=== PATIENT | female | born 1970 | race Two or more races ===

== ENCOUNTER 2017-11-23 11:10 | Day surgery (SDC) | payer OTHER | END 2017-11-23 15:40 | disposition home or self-care (01) | LOC: AMB-ENDOS 11:10 | DX: K91.850 Pouchitis (principal); K62.4 Stenosis of anus and rectum ==

== ENCOUNTER 2017-12-24 04:44 | Inpatient (IN) | payer OTHER ==
[~2017-12-24] VITALS: Ht 162.6 cm; Wt 45.4 kg
[2017-12-24] MEDS ORDERED: FLAGYL500MG (05:09)
[2017-12-26] MEDS ORDERED: CIPRO500 MG PO (09:30)
[2017-12-26] MEDS ORDERED: FLAGYL500MG PO (09:30)
[2017-12-26] MEDS ORDERED: INTESTINEX680 M1 PO (09:30)
== END 2017-12-26 12:24 | disposition home or self-care (01) | DRG 394 ==
LOC: ER 04:44 → SEC-K 16:42 → SURG 16:42 → ER 16:42 → SURG 12-25 01:06
PROVIDERS: Surgery
PROC: 3E0T3BZ Introduction of Anesthetic Agent into Peripheral Nerves and Plexi, Percutaneous Approach (ICD-10-PCS; 2017-12-25)
PROC: 0DJD7ZZ Inspection of Lower Intestinal Tract, Via Natural or Artificial Opening (ICD-10-PCS; 2017-12-25)
PROC: 0D9Q0ZX Drainage of Anus, Open Approach, Diagnostic (ICD-10-PCS; principal; 2017-12-25 09:00)
DX: K61.0 Anal abscess (principal); K91.850 Pouchitis; K51.818 Other ulcerative colitis with other complication; K62.89 Other specified diseases of anus and rectum

== ENCOUNTER → 2017-12-30 | Emergency (ER) | payer OTHER ==
[~2017-12-30] VITALS: Ht 162.6 cm; Wt 45.4 kg
[~2017-12-30] MED LIST: CIPRO500 MG PO; FLAGYL500MG; FLAGYL500MG PO; INTESTINEX680 M1 PO
== END | disposition home or self-care (01) ==
LOC: ER 19:15
DX: K61.0 Anal abscess (principal)